=== PATIENT | female | born 1990 | race Caucasian/White ===

== ENCOUNTER 2020-05-04 17:41 | Emergency (ER) | payer OTHER ==
[~2020-05-04] VITALS: Ht 162.6 cm; Wt 145.2 kg
[2020-05-04 18:33] LABS: ABSOLUTE NEUTROPHILS 13.3 thou/uL (1.4-8.2); BASOPHILS 0.4 % (0.0-2.0); EOSINOPHILS 0.5 % (0.0-3.0); HEMATOCRIT 40.6 % (37.0-47.0); MCH 29.2 pg (26.0-34.0); MCHC 34.6 g/dL (28.0-37.0); MCV 84.2 fL (80.0-100.0); MONOCYTES 3.9 % (1.0-8.0); PLATELET COUNT 470 thou/uL (150-400); POLYS 88.2 % (36.0-66.0); RBC 4.82 mil/uL (4.20-5.00); RDW 13.4 % (10.5-14.5); WBC 15.1 thou/uL (4.0-11.0)
[2020-05-04 18:41] LABS: CALCIUM 9.3 mg/dL (8.5-10.1); CREATININE 0.7 mg/dL (0.6-1.0); POTASSIUM 3.5 mmol/L (3.5-5.1)
[2020-05-04 18:47] LABS: ALBUMIN 4.1 g/dL (3.4-5.0); TOTAL BILIRUBIN 0.3 mg/dL (0.2-1.0); TOTAL PROTEIN 7.9 g/dL (6.4-8.2)
[2020-05-04] MEDS ORDERED: ZOFRAN ODT4 MG PO ×2 (20:00→20:23)
[2020-05-04 20:07] VITALS: BP 124/69
== END 2020-05-04 20:24 | disposition home or self-care (01) ==
LOC: ER 17:41
PROVIDERS: Emergency Medicine
DX: K52.9 Noninfective gastroenteritis and colitis, unspecified (principal); Z90.49 Acquired absence of other specified parts of digestive tract; Z88.2 Allergy status to sulfonamides